=== PATIENT | male | born 1955 | race Caucasian/White ===

== ENCOUNTER 2022-05-24 07:30 | Outpatient (CLI) | payer MEDICARE, BC, SELFPAY ==
[2022-05-24 10:32] LABS: Albumin* 4.4 g/dL (3.3-5.0); Chloride* 102 mmol/L (96-114)
[2022-05-24 10:33] LABS: Sodium* 139 mmol/L (135-149)
[2022-05-24 10:35] LABS: Alanine Aminotransferase* 43 U/L (4-50); Alkaline Phosphatase* 49 U/L (40-150); Aspartate Amino Transferase* 34 U/L (12-35); Blood Urea Nitrogen* 22 mg/dL (7-30); Carbon Dioxide* 30 mmol/L (20-32); Cholesterol* 157 mg/dL (90-199); Creatinine* 0.9 mg/dL (0.5-1.5); Estimated Glomerular Filt Rate 94 ml/min; Glucose* 124 mg/dL (60-115); Total Protein* 7.1 g/dL (6.0-8.3)
[2022-05-24 10:36] LABS: Calcium* 8.8 mg/dL (8.4-10.6); HDL Cholesterol* 40 mg/dL (>=40); LDL Cholesterol Calculated 71 mg/dL (<100); Potassium* 4.2 mmol/L (3.6-5.1); Triglycerides* 230 mg/dL (40-149)
== END 2022-05-24 07:31 | disposition home or self-care (01) ==
PROVIDERS: PCP Internal Medicine; Visit Provider Internal Medicine
DX: E78.5 Hyperlipidemia, unspecified (principal); I10 Essential (primary) hypertension
CPT/HCPCS: 80053; 80061

== ENCOUNTER 2023-07-07 08:20 | Outpatient (CLI) | payer MEDICARE, BC, SELFPAY | END 2023-07-07 08:21 | disposition home or self-care (01) | LOC: NFLDREF 07-14 08:34 | PROVIDERS: PCP Internal Medicine; Referring Provider Internal Medicine; Visit Provider Internal Medicine | DX: E78.5 Hyperlipidemia, unspecified (principal); I10 Essential (primary) hypertension; Z12.5 Encounter for screening for malignant neoplasm of prostate | CPT/HCPCS: 80053; 80061; G0103 ==

== ENCOUNTER 2023-12-25 07:41 | Outpatient (CLI) | payer MEDICARE, BC, SELFPAY ==
--- OUTSIDE RECORDS SUMMARY | 2023-12-29 15:50 | XMS_ITS | Clinical Summary ---
Author Organization [facility] Address [place], [place] [address] Care Team Providers Care Transfer Operator Name Role Phone Piotr Crystal MD Primary Care Provider Sherif Worthington MD Unavailable [phone] Allergies Active Allergy Reactions Criticality Noted Date Comments Penicillins *Unknown - Childhood Rxn 09/01/2007 Medications Medication Sig Dispensed Refills Start Date End Date Status glucosamine/chondro wright A/C/Mn (GLUCOSAMINE-CHONDROI TIN COMPLX ORAL) Take 2 Tabs by mouth once daily. Active aspirin chewable 81 mg chewable tabletIndications:CVA (cerebral vascular accident) (HC) Take 1 tablet by mouth once daily with a meal. 90 tablet 3 12/14/2018 Active atorvastatin (LIPITOR) 40 mg tabletIndications:Hx of ischemic left MCA stroke Take 1 tablet by mouth once daily. 90 tablet 01/15/2019 Active metoprolol succinate (Toprol XL) 25 mg Sustained-Release tabletIndications:HTN (hypertension) Take 1 Tablet (25 mg) by mouth once daily. 90 Tablet 4 01/26/2021 Active hydroCHLOROthiazide (HCTZ) 25 mg tablet Take 25 mg by mouth once daily. 08/29/2022 Active Active Problems Problem Noted Date Diagnosed Date Hypertension 12/13/2018 Colon polyp 10/19/2009 Overview (11/03/2014): Colonoscopy 09/2009 polyp repeat in 5 years Colonoscopy 10/2014 normal repeat in 5 years ANT 08/12/2007 AHI- 67 09/01/2007 Immunizations Name Administration Dates Next Due Td (Age >=7 Years) 06/10/2006 Family History Medical History Relation Name Comments Pulmonary embolism Father in 4 0's Other Mother of old age Relation Name Status Comments Father Mother Social History Tobacco Use Types Packs/Day Years Used Date Smoking Tobacco: Never Alcohol Use Standard Drinks/Week Comments Yes 14 (1 standard drink = 0.6 oz pu re alcohol) Social Connections Answer Date Recorded Frequency of Communication with Friends and Fami ly Not on file 04/21/2021 Financial Resource Strain Answer Date R ecorded Difficulty of Paying Living Expenses Not on file 04/21/2021 Difficulty of Paying Living Expenses Not on file 04/21/2021 Sex and Gender Information Value Date Recorded Sex Assigned at Not on file Gender Identity Not on file Sexual Orientation Not on file Obstetrics History Last Filed Vital Signs Vital Sign Reading Time Taken Comments Blood Pressure 138/94 11/19/2022 2:47 PM CDT Pulse 64 11/19/2022 2:47 PM CDT Temperature 36.6 ??C (97.8 ??F) 11/19/2022 2:47 PM CD T Respiratory Rate 18 11/19/2022 2:47 PM CDT Oxygen Saturation 98% 11/19/2022 2:47 PM CDT Inhaled Oxygen Concentration - - Weight 90.7 kg (200 lb) 11/19/2022 1:46 PM CDT Height 175.3 cm (5' 9) 11/19/2022 1:46 PM CDT Body Mass Index 29.53 11/19/2022 1:46 PM CDT Plan of Treatment Health Maintenance Due Date Last Done Comments Tdap 1965 Depression screening for age 12+ 1966 Hepatitis C screening for ag e 18-79 1972 Zoster (shingles) series for age 50+ (1 of 2) 2004 Tetanus booster 06/10/2016 06/10/2006 Medicare Wellness for age 65+ 08/29/2019 Pneumococcal series for age 65+ (1 of 1 - PCV) 08/29/2019 Colonoscopy through age 75 11/04/201911/03, 11/03/2014, 10/19/2009, Additional history exists BMI (ht and wt on same day) for age 18+ 01/14/2020 01/13/2019 Lipids for age 45-75 12/15/2023 12/14/2018, 06/17/19 07 COVID-19 vaccine series ( season) 2023 01/31/2022, 11/20/2021, 02/28/2021, Additional history exists Influenza for age 65+ 12/21/2023 Procedures Procedure Name Priority Date/Time Associated Diagnosis Comments LIPID PANEL Today 12/14/2018 7:04 AM CDT from Last 3 Months or Most Recently Relevant to Health Maintenance Results * (ABNORMAL) LIPID PANEL (12/14/2018 7:04 AM CDT) CHOLESTEROL,TOTAL 160 100 - 199 mg/dL 12/14/2018 8:15 AM CDT [facility] TRIGLYCERIDES 338(H) <150 mg/dL 12/14/2018 8:15 AM CDT [facility] HDL CHOLESTEROL 29(L) >40 mg/dL 9 8:15 AM CDT [facility] NON-HDL CHOLESTEROL 131 <145 mg/dl 12/14/2018 8:15 AM CDT [facility] CHOL/HDL RATIO 5.52(H) <4.50 12/14/2018 8:15 AM CDT [facility] LDL CHOLESTEROL 63 <=130 mg/dL 12/14/2018 8:15 AM CDT [facility] PROVIDER ORDERED STATUS RANDOM 12/14/2018 8:15 AM CDT [facility] Blood BLOOD SPECIMEN / Unknown Venipuncture / Unknown 12/14/2018 7:04 AM CDT 12/14/2018 7:47 AM CDT Carlos Toscano DO CHEMISTRY [facility] [address] [place] [address], [place] from Last 3 Months or Most Recently Relevant to Health Maintenance Advance Directives * Full Code (Latest Code Status on File) Date Activated Date Inactivated Comments 12/13/2018 5:27 PM 12/14/2018 8:28 PM Question Answer Comments Code Status Discussion: Not Discussed Care Teams Transfer Operator Relationship Specialty Start Date End Date Piotr Crystal MD [address] [place] [address] PCP - General Internal Medicine 01/03/19 Sherif Worthington MD [address] [place] [address] General Surgery Surgery - Orthopedics 01/13/19
--- OUTSIDE RECORDS SUMMARY | 2023-12-29 15:51 | XMS_ITS | Clinical Summary ---
Author Organization [facility] Address [address] [place] [address] Care Team Providers Care Radiology Rn Name Role Phone Piotr Crystal MD Primary Care Provider Idania Payne PA-C Unavailable [phone] Saji Manuel MD Unavailable [phone] Allergies Active Allergy Reactions Criticality Noted Date Comments Penicillins 09/01/2007 Medications Medication Sig Dispensed Refills Start Date End Date Status atorvastatin (LIPITOR) 10 MG tablet Take 10 mg by mouth 11/03/2014 Active triamterene-HCTZ (DYAZIDE) 37.5-25 MG capsule 07/09/2018 Active Active Problems Problem Noted Date Diagnosed Date Colon polyp 10/19/2009 Overview: Overview: Colonoscopy 09/2009 polyp repeat in 5 years Colonoscopy 10/2014 normal repeat in 5 years Sleep apnea 09/01/2007 Social History Tobacco Use Types Packs/Day Years Used Date Smoking Tobacco: Never Smokeless Tobacco: Never Alcohol Use Standard Drinks/Week Comments Yes 0 (1 standard drink = 0.6 oz pur e alcohol) PHQ-2 Answer Date Recorded PHQ-2 Score 0 05/01/2018 Adolescent Education Answer Date Record ed Getting School Help Needed Not on file 01/10 Sex and Gender Information Value Date Recorded Sex Assigned at Not on file Gender Identity Not on file Sexual Orientation Not on file Last Filed Vital Signs Vital Sign Reading Time Taken Comments Blood Pressure - - Pulse - - Temperature - - Respiratory Rate - - Oxygen Saturation - - Inhaled Oxygen Concentration - - Weight 92.1 kg (203 lb) 05/01/2018 11:38 AM SOCIAL PROBLEMS SPECIALIST Height 172.7 cm (5' 8) 05/01/2018 11:38 AM SOCIAL PROBLEMS SPECIALIST Body Mass Index 30.87 05/01/2018 11:38 AM SOCIAL PROBLEMS SPECIALIST Plan of Treatment Not on file Care Teams Radiology Rn Relationship Specialty Start Date End Date Piotr Crystal MD [facility] [address] [place] [address] PCP - General Emergency Medicine 04/29/18 Idania Payne PA-C [facility] [address] [place] [address] Referring Physician 04/29/18 Saji Manuel MD [address] [place] [id number] Orthopaedic Surgery 04/29/18
--- OUTSIDE RECORDS SUMMARY | 2023-12-29 15:51 | XMS_ITS | Referral Summary ---
Author Organization [facility] Address [address] [place] [address] Care Team Providers Care Manager Transportation Planning Name Role Phone Piotr Crystal MD Primary Care Provider Idania Payne PA-C Unavailable [phone] Saji Manuel MD Unavailable Allergies Active Allergy Reactions Criticality Noted Date [...] 92.1 kg (203 lb) 05/01/2018 11:38 AM IVORY POLISHER Height 172.7 cm (5' 8) 05/01/2018 11:38 AM IVORY POLISHER Body Mass Index 30.87 05/01/2018 11:38 AM IVORY POLISHER Plan of Treatment Not on file Care Teams Manager Transportation Planning Relationship Specialty Start Date End Date Piotr Crystal MD [facility] [address] [place] [address] PCP - General Emergency Medicine 04/29/18 Idania Payne PA-C [facility] [address] [place] [address] Referring Physician 04/29/18 Saji Manuel MD [address] [place] [address] Orthopaedic Surgery 04/29/18
== END 2023-12-25 07:42 | disposition home or self-care (01) ==
LOC: NFLDREF 12-29 15:49
PROVIDERS: PCP Internal Medicine; Referring Provider Internal Medicine; Visit Provider Internal Medicine
DX: E78.5 Hyperlipidemia, unspecified (principal); R73.9 Hyperglycemia, unspecified; I10 Essential (primary) hypertension; Z12.5 Encounter for screening for malignant neoplasm of prostate
CPT/HCPCS: 80053; 80061; G0103

== ENCOUNTER 2024-06-29 09:05 | Emergency (ER) | payer MEDICARE, BC, SELFPAY ==
--- OUTSIDE RECORDS SUMMARY | 2024-06-29 09:09 | XMS_ITS | Clinical Summary ---
Author Organization [facility] Address [address] [place] [address] Care Team Providers Care Sprayer Hand Name Role Phone Piotr Crystal MD Primary Care Provider Idania Payne PA-C Unavailable Saji Maneul MD Unavailable Allergies Active Allergy Reactions Criticality Noted Date Comments Penicillins 09/01/2007 Medications atorvastatin (LIPITOR) 10 MG tablet Take 10 mg by mouth 11/03/2014 Active triamterene-HCTZ (DYAZIDE) 37.5-25 MG capsule 07/09/2018 Active Active Problems Problem Noted Date Diagnosed Date Colon polyp 10/19/2009 Overview (08/14/2018): Overview: Colonoscopy 09/2009 polyp repeat in 5 [...] Recorded Sex Assigned at Not on file Legal Sex Male 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 Gender Identity Not on file Sexual Orientation Not on file Last Filed Vital Signs Vital Sign Reading Time Taken Comments Blood Pressure - - Pulse - - Temperature - - Respiratory Rate - - Oxygen Saturation - - Inhaled Oxygen Concentration - - Weight 92.1 kg (203 lb) 05/01/2018 11:38 AM DRY CANS BACK TENDER Height 172.7 cm (5' 8) 05/01/2018 11:38 AM DRY CANS BACK TENDER Body Mass Index 30.87 05/01/2018 11:38 AM DRY CANS BACK TENDER Plan of Treatment Not on file Insurance [employer] Care Teams Sprayer Hand Relationship Specialty Start Date End Date Piotr Crystal MD [facility] [address] [place] [address] PCP - General Emergency Medicine 04/29/18 Idania Payne PA-C [facility] [address] [place] [address] Referring Physician 04/29/18 Saji Manuel MD [address] [place] [id number] Orthopaedic Surgery 04/29/18
[2024-06-29 09:15] VITALS: BP 123/77; PULSE 65; RESP 18; TEMP 36.6; O2SAT 94; BMI 28.7
--- NOTE | 2024-06-29 09:50 | ED.LOWEXIN ---
HPI - Extremity Injury (Lower) General Date Seen: 06/29/24 Chief Complaint: Extremity Pain/Injury, Lower Stated Complaint: Potential left leg clot Time Seen by Provider: 06/29/24 09:08 Source: patient Mode of arrival: ambulatory Limitations: no limitations History of Present Illness HPI Narrative: Patient is a 68-year-old gentleman who presents here with an injury to his left leg, he noted approximately a week ago he fell off the tailgate of a truck, he works as a like [employer], noted been painful and bruising set and since then, yesterday noted the bruising lower behind his knee and some swelling of his ankles and his toe, he was worried about a blood clot as there is a family history of factor 5 Leiden deficiency, he has never had a personal history of DVT or pulmonary embolus. He denies any chest pain shortness of breath associated with this numbness tingling weakness in extremities. Call this clinic as he sees on the directed him to the emergency department. He does take aspirin daily, with a history of a CVA in the past. I note in his chart that he is noted to be heterozygous for factor 5 Leiden mutation. complaint: leg injury Onset (ago): week(s) Injury: Left: thigh Type of Injury: blunt Place: work Severity: moderate Relieving factors: nothing Exacerbating factors: nothing Related Data Home Medications ?Medication ?Instructions ?Recorded ?Confirmed aspirin 81 mg chewable tablet 81 mg PO QDAY 05/28/22 12/31/23 Previous Rx's ?Medication ?Instructions ?Recorded atorvastatin 40 mg tablet 40 mg PO QDAY Hyperlipidemia #90 07/09/23 tabs hydrochlorothiazide 25 mg tablet 25 mg PO QDAY Hypertension #90 tabs 07/09/23 metoprolol succinate 50 mg 50 mg PO QDAY Hypertension #90 tabs 01/06/24 tablet,extended release 24 hr Allergies Allergy/AdvReac Type Severity Reaction Status Date / Time penicillin V Allergy Mild Rash Verified 12/31/23 08:10 Review of Systems Status of ROS: Reports: 10 or more systems reviewed and unremarkable except as noted in History and below [facility] Medical History Sciatica ?M54.30 - Sciatica, unspecified side (ICD-10) Elevated blood sugar ?R73.9 - Hyperglycemia, unspecified (ICD-10) CVA (cerebral vascular accident) ?I63.9 - Cerebral infarction, unspecified (ICD-10) Hearing loss ?H91.90 - Unspecified hearing loss, unspecified ear (ICD-10) Surgical History History of tonsillectomy (1966) ?Z90.89 - Acquired absence of other organs (ICD-10) History of shoulder surgery (2019) ?Z98.890 - Other specified postprocedural states (ICD-10) History of foot surgery (2007) ?Z98.890 - Other specified postprocedural states (ICD-10) Social History Narrative: exercises regularly- work; climbing ladders, carry ladders and other weights etc , electrician wiring, 3 kids non-smoker social drinker- 6/week What is your current living situation?: I presently have a place to live Problems where you live: no known problems In the past 12 months, utilities in danger of being shut off: no In past 12 months, lack of transportation kept you from medical appts, meetings, work, or getting things needed for daily living: no In the past 12 mos, have been you worried that your food would run out before you had money to buy more?: never true In the past 12 mos, the food you bought just didn't last and you didn't have money to buy more?: never true Smoking Status: Never smoker How often does anyone, including family, friends and others, physically hurt you: never How often does anyone, including family, friends and others, insult or talk down to you: never How often does anyone, including family, friends and others, threaten you with harm: never How often does anyone, including family, friends and others, scream or curse at you: never Exam Narrative: Exam Narrative: On examination and stabilization room 2. He is in no apparent distress pleasant alert his vital signs are stable nontoxic. Left leg shows evidence of bruising from approximately mid to upper 3rd of his thigh, down to his knee, and a little bit down into his calf, wrapping around his medial side. There is no fusion of his knees knee has full range of motion of flexion extension, ligaments all feel intact this ACL PCL MCL and LCL, popliteal fossa feels nontender. Good pulses of his femoral popliteal DP and posterior tibial are noted. He has some coloring changes of yellowish noted dull way down into his pimentel region likely from a hemoglobin distribution. Ultrasound is used in his upper leg I have good femoral pulse, he has good compressible venous architecture, his deep veins. There is a collection of fluid which I suspect is blood. On his right medial thigh approximately 2.5 x 1.3 and there was a his 2 other other slightly smaller. I am unable to get compressible nature however behind the popliteal fossa of his veins. We will thusly order an ultrasound. Chest is good air entry bilaterally no wheezing crackles noted his heart sounds are all none with clicks murmurs or gallops. Const: Vital Signs, click to edit/add: Vital Signs - 24 hr 06/29/24 09:15 Temperature 98 F Pulse Rate [Pulse Oximeter] 65 Respiratory Rate 18 Blood Pressure [Ri ght Upper Arm] 123/77 Pulse Oximetry 94 Oxygen Delivery Me thod Room Air Documenting provider has reviewed patient's vital signs: yes Course Course ED Course: Formal ultrasound shows no evidence of a DVT. [place] [address] Diagnostic Imaging Report Patient: Juarez Jason MR#: [id number] : 1955 Acct:[id number] Loc: ED Service Date: 06/29/[address]: Ordering Physician: Dharmesh Francis M.D. Date of Service: 06/29/24 Procedure(s): US venous LE LT Accession Number(s): [id number] cc: Piotr Crystal M.D.; Dharmesh Francis M.D.~ For Patients: As a result of the 21st Century Cures Act, medical imaging exams and procedure reports are released immediately into your electronic medical record. You may view this report before your referring provider. If you have questions, please contact your health care provider. Indication: Injury. Swelling. Hematoma. Technique: Grayscale common grayscale compression, color Doppler, spectral Doppler and augmentation technique was utilized for evaluating the left lower extremity deep venous system. The right common femoral vein was also studied. Comparison: None Findings: There is no evidence of left lower extremity deep venous thrombosis. The right common femoral vein is widely patent. Impression: No evidence of left lower extremity deep venous thrombosis. Dictated by Manas George MD @ 06/29/2024 10:47:10 AM (Electronically Signed) I discussed with him that he will need to use some heat on his leg keep moving around he should not Yefri wrap it, as this will set him up to develop a DVT. Increasing swelling, shortness of breath or chest pain he should come back and be seen. he was very comfortable with this, discharged ambulatory, reassured Vital Signs Vital signs: Initial Vital Signs Temperature 98 F 06/29/24 09:15 Temperature Source Temporal Artery Scan 06/29/24 09:15 Pulse Rate 65 06/29/24 09:15 Respiratory Rate 18 06/29/24 09:15 Blood Pressure 123/77 06/29/24 09:15 Blood Pressure Mean 92 06/29/24 09:15 Pulse Oximetry 94 06/29/24 09:15 Oxygen Delivery Method Room Air 06/29/24 09:15 Vital Signs Temperature 98 F 06/29/24 09:15 Pulse Rate 65 06/29/24 09:15 Respiratory Rate 18 06/29/24 09:15 Blood Pressure 123/77 06/29/24 09:15 Pulse Oximetry 94 06/29/24 09:15 Oxygen Delivery Method Room Air 06/29/24 09:15 Temperature 98 F 06/29/24 09:15 Pulse Rate 65 06/29/24 09:15 Respiratory Rate 18 06/29/24 09:15 Blood Pressure 123/77 06/29/24 09:15 Pulse Oximetry 94 06/29/24 09:15 Oxygen Delivery Method Room Air 06/29/24 09:15 Discharge Plan Discharge Clinical Impression: Hematoma of left thigh Patient Disposition: Home, Self-Care Condition: Stable Instructions: Contusion in Adults (ED) Additional Instructions: This hematoma will slowly resolve over the next 6-8 weeks, there will be a lot of color change of her leg and swelling secondary to this. No evidence of DVT is seen by the radiologist on the scan. There was that small collection of blood, it can be sped up at least the resorption of the blood by heat. Recommend movement also. Follow-up as needed, Activity Level: Light activity Prescriptions: No Action aspirin 81 mg tablet,chewable 81 mg PO QDAY atorvastatin 40 mg tablet 40 mg PO QDAY Qty: 90 3RF hydrochlorothiazide 25 mg tablet 25 mg PO QDAY Qty: 90 3RF metoprolol succinate 50 mg tablet extended release 24 hr 50 mg PO QDAY Qty: 90 2RF Follow Up/Referrals: Piotr Crystal MD [Primary Care Provider] - Stand Alone Forms: [employer] Info Instructions
--- OUTSIDE RECORDS SUMMARY | 2024-06-29 11:20 | XMS_ITS | Clinical Summary ---
Author Organization [facility] Address [address] [place] [address] Care Team Providers Care Tail Sawyer Name Role Phone Piotr Crystal MD Primary Care Provider Idania Payne PA-C Unavailable [phone] Saji Manuel MD Unavailable Allergies Active Allergy [...] on file Legal Sex Male 8:32 AM OCCUPATIONAL THER Gender Identity Not on file Sexual Orientation Not on file Last Filed Vital Signs Vital Sign Reading Time Taken Comments Blood Pressure - - Pulse - - Temperature - - Respiratory Rate - - Oxygen Saturation - - Inhaled Oxygen Concentration - - Weight 92.1 kg (203 lb) 05/01/2018 11:38 AM OCCUPATIONAL THER Height 172.7 cm (5' 8) 05/01/2018 11:38 AM OCCUPATIONAL THER Body Mass Index 30.87 05/01/2018 11:38 AM OCCUPATIONAL THER Plan of Treatment Not on file Insurance [employer] Care Teams Tail Sawyer Relationship Specialty Start Date End Date Piotr Crystal MD [facility] [address] [place] [address] PCP - General Emergency Medicine 04/29/18 Idania Payne PA-C [facility] [address] [place] [address] Referring Physician 04/29/18 Saji Manuel MD [address] [place] [id number] Orthopaedic Surgery 04/29/18
--- OUTSIDE RECORDS SUMMARY | 2024-06-29 11:20 | XMS_ITS | Clinical Summary ---
Author Organization [facility] Address [address] [place] [id number] Care Team Providers Care Equipment Planner Name Role Phone Piotr Crystal MD Primary Care Provider Sherif Worthington MD Unavailable [phone] Allergies Active Allergy Reactions Criticality Noted Date Comments Penicillins *Unknown - Childhood Rxn 09/01/2007 Medications glucosamine/donnie federico wright A/C/Mn (GLUCOSAMINE-CHO NDROITIN COMPLX ORAL) Take 2 Tabs by mouth once daily. Active aspirin chewable 81 mg chewable tabletIndication s:CVA (cerebral vascular accident) (HC) Take 1 tablet by mouth once daily with a meal. 90 tablet 3 12/14/2018 5:58 PM CDT 12/14/2018 Active atorvastatin (LIPITOR) 40 mg tabletIndication s:Hx of ischemic left MCA stroke Take 1 tablet by mouth once daily. 90 tablet 01/15/2019 Active metoprolol succinate (Toprol XL) 25 mg Sustained-Releas e tabletIndication s:HTN (hypertension) Take 1 Tablet (25 mg) by mouth once daily. 90 Tablet 4 01/26/2021 Active hydroCHLOROthiaz denton (HCTZ) 25 mg tablet Take 25 mg by mouth once daily. 08/29/2022 Active Active Problems Problem Noted Date Diagnosed Date Hypertension 12/13/2018 Colon polyp 10/19/2009 Overview (11/03/2014): Colonoscopy 09/2009 polyp repeat in 5 years Colonoscopy 10/2014 normal repeat in 5 years ANT 08/12/2007 AHI- 68 09/01/2007 Immunizations Immunization Administration Dates Next Due Td (Age >=7 [...] at Not on file Legal Sex Male 5:24 AM LOAD [employer] Gender Identity Not on file Sexual Orientation Not on file Obstetrics History Last Filed Vital Signs Vital Sign Reading Time Taken Comments Blood Pressure 138/94 11/19/2022 2:47 PM CDT Pulse 64 11/19/2022 2:47 PM CDT Temperature 36.6 C (97.8 F) 11/19/2022 2:47 PM CDT Respiratory Rate 18 11/19/2022 2:47 PM CDT [...] C screening for ag e 18-79 1972 Pneumococcal series for age 50+ (1 of 1 - PCV) 2004 Zoster (shingles) series for age 50+ (1 of 2) 2004 Tetanus booster 06/10/2016 06/10/2006 Medicare Wellness for age 65+ 08/29/2019 Colonoscopy through age 75 11/04/201911/03, 11/03/2014, 10/19/2009, Additional history exists BMI (ht and wt on same day) for age 18+ 01/14/2020 01/13/2019 Lipids for age 45-75 12/15/2023 12/14/2018, 06/17/19 07 COVID-19 vaccine series (2023- season) 2023 01/31/2022, 11/20/2021, 02/28/2021, Additional history exists Influenza Vaccine (#1) 2023 RSV vaccine for adults or (1 - 1-dose 75+ series) 2029 Procedures Procedure Name Priority Date/Time Associated Diagnosis Comments LIPID PANEL Today 12/14/2018 7:04 AM CDT from Last 3 Months or Most Recently Relevant to Health Maintenance Results * (ABNORMAL) LIPID PANEL (12/14/2018 7:04 AM CDT) CHOLESTEROL,TOTAL 160 100 - 199 mg/dL 12/14/2018 8:15 AM CDT [facility] TRIGLYCERIDES 338(H) <150 mg/dL 12/14/2018 8:15 AM CDT [facility] HDL CHOLESTEROL 29(L) >40 mg/dL 9 8:15 AM CDT [facility] NON-HDL CHOLESTEROL 131 <145 mg/dl 12/14/2018 8:15 AM CDT [facility] CHOL/HDL RATIO 5.52(H) <4.50 12/14/2018 8:15 AM CDT [facility] LDL CHOLESTEROL 63 <=130 mg/dL 12/14/2018 8:15 AM CDT [facility] PROVIDER ORDERED STATUS RANDOM 12/14/2018 8:15 AM CDT [facility] Blood BLOOD SPECIMEN / Unknown Venipuncture / Unknown 12/14/2018 7:04 AM CDT 12/14/2018 7:47 AM CDT us Cralos Toscano DO CHEMISTRY Final R esult [facility] [address] [place] [address], from Last 3 Months or Most Recently Relevant to Health Maintenance Insurance [employer] PB ONLY MEDICARE PART A HB ONLY MEDICARE PART B HB ONLY MEDICARE PART A HB ONLY [employer] HB ONLY MEDICARE PART B HB ONLY Advance Directives * Full Code (Latest Code Status on File) Date Activated Date Inactivated Comments 12/13/2018 5:27 PM 12/14/2018 8:28 PM Question Answer Comments Code Status Discussion: Not Discussed Care Teams Equipment Planner Relationship Specialty Start Date End Date Piotr Crystal MD [address] [place] [address] PCP - General Internal Medicine 01/03/19 Sherif Worthington MD [address] [place] [address] General Surgery Surgery - Orthopedics 01/13/19
== END 2024-06-29 11:22 | disposition home or self-care (01) ==
LOC: ED 11:18
PROVIDERS: Emergency Provider Family Medicine; PCP Internal Medicine
DX: S70.12XA Contusion of left thigh, initial encounter (principal); W22.8XXA Striking against or struck by other objects, initial encounter
CPT/HCPCS: 93971; 99283

== ENCOUNTER 2024-12-27 08:13 | Outpatient (CLI) | payer MEDICARE, BC, SELFPAY | END 2024-12-27 08:14 | disposition home or self-care (01) | LOC: NFLDREF 12-30 08:24 | PROVIDERS: PCP Internal Medicine; Referring Provider Internal Medicine; Visit Provider Internal Medicine | DX: E78.5 Hyperlipidemia, unspecified (principal); I10 Essential (primary) hypertension; Z12.5 Encounter for screening for malignant neoplasm of prostate | CPT/HCPCS: 80053; 80061; G0103 ==

== ENCOUNTER 2025-03-28 06:30 | Outpatient (CLI) | payer MEDICARE, BC, SELFPAY ==
--- NOTE | 2025-03-28 07:53 | P.ANES_ITS ---
Anesthesia Charges Start Date/Time Anesthesia Start Date: 03/28/25 Anesthesia Start Time: 07:23 Stop Date/Time Anesthesia Stop Date: 03/28/25 Anesthesia Stop Time: 07:50 Coding CPT Codes CPT Codes: ANES LWR INTST NDSC NOS - 57822 ([id number]) P3 - PATIENT W/SEVERE SYS DISEASE, QK - ACROBATIC RIGGER 2-4 CNCRNT ANES PROC, QX - GREEN HIDE INSPECTOR SVC W/ MD MED DIRECTION
--- NOTE | 2025-03-28 07:53 | W.ANESCHARGE ---
Anesthesia Charges Start Date/Time Anesthesia Start Date: 03/28/25 Anesthesia Start Time: 07:23 Stop Date/Time Anesthesia Stop Date: 03/28/25 Anesthesia Stop Time: 07:50 Coding CPT Codes CPT Codes: ANES LWR INTST NDSC NOS - 15151 ([id number]) P3 - PATIENT W/SEVERE SYS DISEASE, QK - AMMUNITION STOREKEEPER 2-4 CNCRNT ANES PROC, QX - CHANGEOVER OPERATOR SVC W/ MD MED DIRECTION
--- NOTE | 2025-03-28 08:49 | P.ANES_ITS ---
Anesthesia Charges Start Date/Time Anesthesia Start Date: 03/28/25 Anesthesia Start Time: 07:23 Stop Date/Time Anesthesia Stop Date: 03/28/25 Anesthesia Stop Time: 07:50 Summary Extremes of Age - Over 70 or under 1: MDA Coding CPT Codes CPT Codes: ANES LWR INTST NDSC NOS - 11066 ([id number]) QK - UNIT MANAGER RN 2-4 CNCRNT ANES PROC, QX - PLUMBING SERVICE TECHNICIAN SVC W/ MD MED DIRECTION, P3 - PATIENT W/SEVERE SYS DISEASE Additional Codes: Summary - Extremes of Age - Over 70 or under 1: MDA ([id number])
== END 2025-03-28 06:31 | disposition home or self-care (01) ==
LOC: OP CLINIC 06:31
PROVIDERS: PCP Internal Medicine; Visit Provider Internal Medicine
DX: Z12.11 Encounter for screening for malignant neoplasm of colon (principal); D12.2 Benign neoplasm of ascending colon; D12.3 Benign neoplasm of transverse colon; D12.4 Benign neoplasm of descending colon; K57.30 Diverticulosis of large intestine without perforation or abscess without bleeding
CPT/HCPCS: 00811; 00812; 45380; 99100; J2704